=== PATIENT | male | born 1955 | race African-American/Black ===

== ENCOUNTER 2019-05-09 08:24 | Inpatient (IN) | payer OTHER ==
[~2019-05-09] VITALS: Ht 180.3 cm; Wt 125.0 kg
[2019-05-09] VITALS (11 sets, daily range): BP systolic 113–161; BP diastolic 44–80
[~2019-05-09 08:24] MED LIST: AMLODIPINE BESY10 MG PO; ATORVASTATIN CA40 MG PO; DOCUSATE SOD100 M2 PO; EUCERI1 TOP; GLUCOSAMINE500 M1 PO; INDOCIN25 MG PO; LIQUID TEARS OU; LISINOPRIL10 MG PO; LISINOPRIL20 MG PO; LORATADINE10 M1 PO; METOPROL TAR25 MG PO; OMEPRAZOLE20 M2 PO; PROZAC20 MG PO; SPIRONOLACTONE25 MG PO; TAMSULOSIN0.4 MG PO; TOLNAFTATE EX; TRAZODONE50 MG PO
[2019-05-09 10:02] LABS: HEMATOCRIT 37.1 % (39.0-50.0); IMMATURE GRANULOCYTES 0.2 % (0.0-5.0); MEAN CELL VOLUME 81.2 fL CALC (80.0-100.0); MEAN CORPUSCULAR HGB 26.3 pG CALC (26.0-32.0); MEAN CORPUSCULAR HGB CONC 32.3 g/L CALC (32.0-36.0); NEUT# 2.7 thou/uL (1.82-7.42); RED BLOOD COUNT 4.57 mill/uL (4.70-6.10); RED CELL DISTRI WIDTH 13.7 % (11.5-15.5)
--- NOTE | 2019-05-09 15:05 | NUR ---
PT ARRIVED FROM OR VIA BED. WITH STAFF AND GUARDS PRESENT
--- NOTE | 2019-05-09 15:20 | NUR ---
ASSESSMENT IS COMPLETED: IV SITE IS FREE FROM REDNESS OR EDEMA. HR IS REG,PULSES ARE STRONG X4, ABD IS SOFT WITH ACTIVE BS. BREATH SOUNDS ARE CLEAR, BILATERALLY, DRESSING ON LEFT KNEE IS CDI. SCD IN PLACE. 2 GUARDS AT BEDSIDE.
--- NOTE | 2019-05-09 19:48 | NUR ---
PT IS RELXING IN BED WITH NO DISTRESS NOTED. IV SITE IS FREE FROM REDNESS OR EDEMA.
--- NOTE | 2019-05-09 21:36 | NUR ---
PT MEDICATED ORDERS PROVIDE AND FOR PAIN 10/10 ON PAIN SCALE. PT C/O ITCHING STILL, PHYSICIAN NOTIFIED OF PT COMPLAINT, AWAITING ORDERS. PT ASSESSMENT COMPLETED AT THIS TIME.
--- NOTE | 2019-05-09 22:36 | NUR ---
ORDERS RECEIVED AND PT MEDICATED FOR ITCHING. PT REPORTED THAT HE FELT IT WAS ALREADY IMPROVING SOMEWHAT PRIOR TO ADMINISTRATION OF BENEDRYL. WILL CONITNUE TO MONITOR.
[2019-05-10 04:20] VITALS: BP 150/68
--- NOTE | 2019-05-10 04:25 | NUR ---
PT MEDICATED FOR PAIN REPORTED /10 AND W/BALAJIDRYL FOR ITCHING. POC AND MEDICATION SCHEDULE DISCUSSED W/PT.
[2019-05-10 05:59] LABS: HEMATOCRIT 36.6 % (39.0-50.0); HEMOGLOBIN 11.9 g/dl (14.0-18.0); MEAN CELL VOLUME 82.4 fL CALC (80.0-100.0); MEAN CORPUSCULAR HGB 26.8 pG CALC (26.0-32.0); MEAN CORPUSCULAR HGB CONC 32.5 g/L CALC (32.0-36.0); RED BLOOD COUNT 4.44 mill/uL (4.70-6.10); RED CELL DISTRI WIDTH 14.1 % (11.5-15.5)
[2019-05-10 06:14] LABS: ANION GAP 13 (6-22 (CALC)); BUN 17 mg/dL (8-23); BUN/CREATININE RATIO 16 (12-20 (CALC)); CARBON DIOXIDE 28 mmol/l (22-30); CHLORIDE 101 mmol/l (95-108); CREATININE 1.1 mg/dL (0.7-1.3); GFR > 60 ML/MIN (>=60 (CALC)); GFR FOR AFR.AMER. > 60 ML/MIN (>=60 (CALC)); SODIUM 137 mmol/l (137-146)
[2019-05-10 08:05] VITALS: BP 127/90
--- NOTE | 2019-05-10 08:05 | NUR ---
ASSESSMENT IS COMPLETED: IV SITE IS FREE FROM REDNESS OR EDEMA. HR IS REG,PULSES ARE STRONG X4, ABD IS SOFT WITH ACTIVE BS. BREATH SOUNDS ARE CLEAR. DRESSING ON R KNEE IS CDI. SCD IN PLACE. GUARDS AT BEDSIDE.
--- NOTE | 2019-05-10 10:00 | NUR ---
IN TO VISIT WITH PT WANTING AN ISP FOR HIM. INSTRUCTED PT ON USING THE ISP. DEMONSTRATED WELL.
[2019-05-10 10:45] VITALS: BP 139/61
--- NOTE | 2019-05-10 12:00 | NUR ---
PT IS RELAXING IN BED. HAS WALKED WITH PHYSICAL THERAPY WITH OUT ANY DIFFICULTY. GUARDS IN THE ROOM.
--- NOTE | 2019-05-10 14:32 | NUR ---
DISCONTINUED THE [employer] CATHETER INTACT. NO DISTRESS NOTED. FROM PT. EMPTIED 900CC OF YELLOW URINE.
--- NOTE | 2019-05-10 15:40 | NUR ---
PM TX- PT WAS SEEN FOR GT. PROVIDED VERBAL CUES TO PERFORM SUPINE TO SIT WITH MODIFIED INDEP WHILE PT HELD ONTO BED RAILS. HE THEN USED B UE TO PUSH SELF UP TO STAND. STATIC STANDING WITH ROLLING WALKER AND SBA. INSTRUCTED TO PERFORM WEIGHT SHIFTING PRIOR TO AMB. HE AMB FROM ONE SIDE OF BED TO THE OTHER WITH RW, CGA AND CONSTANT VERBAL CUES. HE WAS CUED ON SUFFICIENT KNEE FLEXION JUST BEFORE SWING PHASE AND HEEL STRIKE TO ENCOURAGE PROPER GAIT PATTERN WHILE UTILIZING A ROLLING WALKER. HE SAT DOWN IN THE RECLINER WITH UNCONTROLLED DESCENT. THERAPIST ELEVATED LEG REST WITH PILLOW UNDER B LE. PT DENIES DISCOMFORT OR OTHER ADVERSE RXNS POST-TX. AMPAC SCORE 12 POINTS.
[2019-05-10 15:46] VITALS: BP 131/81
--- NOTE | 2019-05-10 16:00 | NUR ---
PT IS RELAXING IN BED WITH NO DISTRESS NOTED. IV SITE IS FREE FROM REDNESS OR EDEMA. GUARDS IN THE ROOM. PT HAS TOLERATED WALKING WITH PHYSICAL THERAPY
--- NOTE | 2019-05-10 16:49 | NUR ---
PT HAS NOT VOIDED AT THIS TIME SINCE THE ATKINSON HAS BEEN TAKING OUT. CONTINUE TO OBSERVE AND MONITOR.
--- NOTE | 2019-05-10 19:48 | NUR ---
PT UP TO RESTROOM AND BACK TO BED W/ASSISTANCE OF MYSELF AND AIDE USING WALKER. PT TOLERATED AMBULATION WELL. PT ASSESSED AT THIS TIME. HYPOACTIVE BOWEL SOUNDS, GOOD PEDAL PULSES BILAT, MINIMAL EDEMA TO R.EXTREMITY. PT REPORTS THAT ITCHING IS IMPROVING. 2X GUARDS AT BEDSIDE. CALL LIGHT AT BEDSIDE AND PT ENCOURAGED TO USE IT IF NEEDS ARISE.
[2019-05-10 20:29] VITALS: BP 189/77
--- NOTE | 2019-05-10 21:16 | NUR ---
PT MEDICATED W/PM MEDICATIONS AND PAIN MEDICATION FOR PAIN REPORTED 7/10 ON PAIN SCALE. PT DENIES ANY OTHER NEEDS AT THIS TIME. GUARDS X2 AT BEDSIDE.
--- NOTE | 2019-05-10 22:15 | NUR ---
PT PROVIDED HOT PRUNE JUICE FOR ASSISTANCE OF BOWEL CARE. REPORTS LAST BM ON .
[2019-05-10 22:20] VITALS: BP 156/69
[2019-05-11 04:10] VITALS: BP 113/73
--- NOTE | 2019-05-11 04:15 | NUR ---
GUARDS X2 W/PT. PT IS SLEEPING AT THIS TIME. NO S/O DISTRESS NOTED.
[2019-05-11 05:47] LABS: HEMATOCRIT 35.3 % (39.0-50.0); HEMOGLOBIN 11.4 g/dl (14.0-18.0)
--- NOTE | 2019-05-11 06:25 | NUR ---
PT APPEARS TO BE SLEEPING, NO S/O DISTRESS NOTED AT THIS TIME. GUARD AT BESIDE.
--- NOTE | 2019-05-11 06:53 | NUR ---
PT MEDICATED FOR PAIN 7/10 ON PAIN SCALE. OFFERED PT COFFEE/DRINK, DENIED. GUARDS X2 AT BEDSIDE. DRESSING TO RLE CDI.
[2019-05-11 09:10] VITALS: BP 87/51
--- NOTE | 2019-05-11 09:10 | NUR ---
ASSESSMENT IS COMPLETED: IV SITE IS FREE FROM REDNESS OR EDMEA. HR IS REG,PULSES ARE STRONG X4, ABD IS SOFT WITH ACTIVE BS. BREATH SOUNDS ARE CLEAR, BILATERALLY. DRESSING ON R KNEE IS CDI. 2 GUARDS IN THE ROOM. SCD IN PLACE,. CONTINUE TO OBSERVE AND MONITOR.
--- NOTE | 2019-05-11 09:25 | NUR ---
PHYSICAL THERAPY IN TO AMBULATE PT WITH WALKER
--- NOTE | 2019-05-11 09:57 | NUR ---
PATIENT SEEN BY PT FOR TREATMENT FOLLOWING TKA R SIDE. PATIENT AWAKE IN LONG SITTING IN BED ON ENTRY. PATIENT WILLING TO PARTICIPATE IN PT. PATIENT REPORTS PAIN TODAY AT 5/10 AT REST AND REPORTS USING THE URINAL FOR URINE. PATIENT THEN INDEPENDENTLY MOVED FROM LONG SIT TO SHORT SIT OVER SIDE OF BED INDEP. WITH BILAT. UE ASSISTANCE WITH RAISING HIS LEG OVER THE EDGE OF THE BED DUE TO PAIN. PATIENT ABLE TO BEND KNEE IN SHORT SITTING TO APPROX. 60 DEGREES ACTIVELY. PATIENT STS TO 2WW WITH DIFFICULTY BUT INDEPENDENTLY. PATIENT TOLERATED THIS WELL AND WAS EDUCATED ON IMPORTANCE OF QUAD CONTRACTION IN STANDING TO PUSH KNEE INTO EXTENSION. PATIENT AMBULATED AROUND THE ROOM WITH 2WW AND SBA FOR APPROX. 30FT. PATIENT USED BATHROOM IN STANDING DURING TREATMENT AND WAS ABLE TO PERFORM ALL ACTIVITIES WITH SBA. STANDING BALANCE IS GOOD. PT ENCOURAGED PATIENT TO WALK WITH NURSING STAFF TO BATHROOM EVERY TIME NEEDED. PATIENT RETURNED TO BED WITH MIN ASSIST TO RAISE LEG INTO BED. PT EDUCATED PATIENT ON USE OF PILLOW UNDER ANKLE FOR KNEE EXTENSION AND WARNED AGAINST PLACING A PILLOW UNDER HIS KNEE. NO ADVERSE EFFECTS OF TX AND PATIENT HAD NO QUESTIONS OR CONCERNS AND IS PLEASED WITH PROGRESS SO FAR. PATIENT WILL REQUIRE PT FOR REHABILITATION.
[2019-05-11 10:27] VITALS: BP 109/59
[2019-05-11 11:21] VITALS: BP 105/66
--- NOTE | 2019-05-11 12:00 | NUR ---
PT IS RELAXING IN BED WITH NO DISTRESS NOTED. IV SITE IS FREE FROM REDNESS OR EDEMA. GUARDS AT BEDSIDE. CONTINUE TO OBSERVE AND MONITOR.
--- NOTE | 2019-05-11 13:45 | NUR ---
PHYSICAL THERAPY IN TO AMBULATE PT. WALKING IN THE HALLWAY WITH A WALKER. TOLERATED WELL.
--- NOTE | 2019-05-11 14:38 | NUR ---
REMOVED DRESSING FROM R KNEE , PT HAS 34 JO ANN INTACT. NO REDNESS OR EDEMA . NO DRAINAGE. PT TOLERATED WELL. CONTINUE TO OSBERVE AND MONITOR.
[2019-05-11 14:45] VITALS: BP 101/60
--- NOTE | 2019-05-11 17:48 | NUR ---
PATIENT SUPINE IN BED ON ENTRY. PATIENT WILLING AND HAPPY TO TAKE PART IN PHYSICAL THERAPY THIS AFTERNOON. PATIENT WAS SEEN FOR GAIT TRAINING WITH 2WW. PATIENT INDEPENDENT SUPINE TO SHORT SITTING ON SIDE OF BED BUT CONTINUES TO MOVE R LE WITH BILATERAL UES. PATIENT THEN PERFORMED STS INDEP. WITH SBA TO 2WW. PATIENT THEN WALKED FULL LENGTH OF IP CORRIDOR WITH 2WW AND SBA (APPROX. 100FT). PATIENT IMPROVED SPEED OF GAIT THIS AFTERNOON AND CONTINUED TO NEED VC'ING FOR ACTIVE EXTENSION DURING STANCE PHASE. PATIENT RETURNED TO ROOM AND OPTED TO SIT IN RECLINER. PATIENT WAS EDUCATED ON APPROPRIATE EXERCISE FOR PRACTICE WHEN NOT BEING SEEN BY PT AND TO BE CONTINUED UPON D/C FROM HOSPITAL. PATIENT WILL REQUIRE HHPT ON D/C FROM [facility] FOR CONTINUED REHAB. [facility]: - HOME HEALTH PT.
--- NOTE | 2019-05-11 19:25 | NUR ---
GUARDS AT BEDSIDE X4 CHANGING SHIFTS. PT DENIES ANY NEEDS AT THIS TIME. NO S/O DISTRESS.
[2019-05-11 20:35] VITALS: BP 112/61
--- NOTE | 2019-05-11 20:39 | NUR ---
PT MEDICATED FOR PAIN 7/10 ON PAIN SCALE AND W/PM MEDICATIONS ORDERS PROVIDE. ICE PACKS PLACED TO RIGHT KNEE. GUARDS X2 AT BEDSIDE. ASSESSMENT COMPLETED AT THIS TIME. PT ENCOURAGED TO USE IS AND ENCOURAGED TO CALL NEEDS ARISE.
--- NOTE | 2019-05-12 00:53 | NUR ---
PT MEDICATED FOR PAIN REPORTED 5/10 ON PAIN SCALE. ICEPACKS PLACED TO R.KNEE FOR COMFORT. WILL CONINTUE TO MONITOR.
--- NOTE | 2019-05-12 04:08 | NUR ---
AIDE IS IN W/PT. NO S/O DISTRESS NOTED. LAB JUST LEAVING ROOM.
[2019-05-12 04:22] VITALS: BP 102/70
[2019-05-12 05:39] LABS: HEMOGLOBIN 10.9 g/dl (14.0-18.0)
--- NOTE | 2019-05-12 06:55 | NUR ---
PT REPORT RECIEVED FROM ALICIA ZAMARRIPA. PT WATCHING TELEVISION. NO S/S OF DISTRESS. GUARDS AT BEDSIDE. WILL CONTINUE TO MONITOR.
--- NOTE | 2019-05-12 07:45 | NUR ---
pt called on light stated he needed to use the restroom. poem writer came in room assisted him to the restroom. pt asked about fresh ice being brought to room for his knee and a water cup. poem writer gave fresh ice and water cup. placed patient back in bed with scd machine applied on rt leg and ice bags placed on left knee. tray was received for breakfast and given to patient and guards.
[2019-05-12 09:09] VITALS: BP 123/68
--- NOTE | 2019-05-12 09:09 | NUR ---
PT A/O X3. SPEECH IS CLEAR. RESP EVEN AND UNLABORED. LUNG SOUNDS CLEAR. BOWEL SOUNDS ACTIVE X4. STRONG RADIAL AND PEDAL PULSES. #20 RFA SL. FLUSHED AND PATENT. SITE APPEARS HEALTHY. RT KNEE SWOLLEN, WARM TO TOUCH, JO ANN TO MIDLINE KNEE INTACT. PT C/O ACHING KNEE PAIN 5 OUT OF 10 ON PAIN SCALE; MEDICATED W/ PERCOCET 10/325 PO. REPOSITIONED FOR COMFORT. ICE IN PLACE. PT DENIES ANY FURTHER NEEDS. POC DISCUSSED. SAFETY PRECAUTIONS IN PLACE. CALL LIGHT IN REACH. GUARDS AT BEDSIDE. WILL CONTINUE TO MONITOR.
[2019-05-12 09:15] VITALS: BP 123/68
--- NOTE | 2019-05-12 10:26 | NUR ---
PHYSICAL THERAPY WALKING PT DOWN THE HALLS W/ WALKER
--- NOTE | 2019-05-12 11:54 | NUR ---
Pt was seen this morning for gait training. He did better and ambulated in the hallway ~50 ft x 2 with RW, SBA and constant cueing on proper posture and gait. He was encouraged to flex knee on preswing and let heel strike the floor first instead of midfoot. Pt understood and attempted his best to execute properly. He then amb to the walk in shower and sat down with controlled descent. Left pt with 2 guards in the room. No adverse reactions noted or reported. [facility] score today: 15 points, pt is appropriate for DC with physical therapy to come to facility.
--- NOTE | 2019-05-12 12:32 | NUR ---
PT EATING LUNCH. NO C/O PAIN OR NEEDS. CALL LIGHT IN REACH. WILL CONTINUE TO MONITOR.
[2019-05-12] MEDS ORDERED: GLYCOLAX3350 N1 PO (13:16)
[2019-05-12] MEDS ORDERED: ASPIRIN EC325 M1 PO (13:16)
[2019-05-12] MEDS ORDERED: PERCOCET 10/31 COMBO PO (13:16)
--- NOTE | 2019-05-12 14:18 | NUR ---
D/C INSTRUCTIONS DISCUSSED W/ PT. PT STATES UNDERSTANDING. IV REMOVED; CATHETER INTACT. PT GETTING DRESSED W/ ASSISTANCE OF GUARDS.
--- NOTE | 2019-05-12 14:40 | NUR ---
Discharge instructions given. Patient verbalizes understanding of same. [facility]. All belongings sent with pt.
== END 2019-05-12 14:40 | disposition designated cancer center or children's hospital (05) | DRG 470 ==
LOC: MS2 08:24
PROVIDERS: Internal Medicine; ADMIT Orthopaedic Surgery; ATTEND Orthopaedic Surgery
PROC: 0SRC0J9 Replacement of Right Knee Joint with Synthetic Substitute, Cemented, Open Approach (ICD-10-PCS; principal; 2019-05-09)
DX: M17.11 Unilateral primary osteoarthritis, right knee (principal); I10 Essential (primary) hypertension; E11.9 Type 2 diabetes mellitus without complications; F32.9 Major depressive disorder, single episode, unspecified; G47.33 Obstructive sleep apnea (adult) (pediatric); Z87.891 Personal history of nicotine dependence